=== PATIENT | female | born 1950 | race Caucasian/White ===

== ENCOUNTER → 2018-04-17 | Outpatient (CLI) | payer BC ==
[2018-04-17 08:17] VITALS: BP 113/61; PULSE 73; TEMP 98; BMI 28.0
--- NOTE | 2018-04-17 08:57 | P.HPOB ---
History of Present Illness H&P Date: 04/17/18 Chief Complaint: The patient is here for her routine gynecologic exam and mammogram. This is a 67-year-old with an LMP of 2000. The patient is without gynecologic complaints and denies any postmenopausal bleeding. I had previously recommended a yearly pelvic ultrasound because of her sister's history of ovarian cancer. She previously had declined the pelvic ultrasound. She now states she will consider this. Review of Systems Weight has been stable. She denies respiratory, cardiac and G.I. problems. She denies maltreatment or problems with falling. : she denies any significant problems with urinary leakage. Past Medical History Past Medical History: Hyperlipidemia Additional Past Medical History / Comment(s): macular degeneration, cataracts and seasonal allergies. 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 She had a conization of her cervix for an abnormal Pap smear many years ago. History of Any Multi-Drug Resistant Organisms: None Reported Past Surgical History: Appendectomy, Section (x2), Tonsillectomy Additional Past Surgical History / Comment(s): Cervical conization. Ovarian sick cystectomy for dermoid cyst in the 1970s. Colonoscopy 2011(2nd). Past Psychological History: No Psychological Hx Reported Smoking Status: Never smoker Past Alcohol Use History: Occasional (3 per week) Past Drug Use History: None Reported Additional History: She has been since 1981 and this is her 2nd marriage. 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 - Past Family History Sister(s) Family Medical History: Cancer (Ovarian cancer in her 20s. of gastric cancer.) Father Family Medical History: Cancer (Prostate cancer), Myocardial Infarction ([place]) Mother Family Medical History: No Reported History Additional Family Medical History / Comment(s): Maternal aunt had breast cancer. Medications and Allergies Home Medications Medication Instructions Recorded Confirmed Type Biotin 5,000 mcg PO 04/17/18 History Cholecalciferol (Vitamin D3) 5,000 unit PO 04/17/18 History [Vitamin D3] Loratadine [Claritin] 10 mg PO DAILY 04/17/18 04/17/18 History Rosuvastatin [Crestor] 20 mg PO DIRECTED 04/17/18 04/17/18 History Ubidecarenone [Co Q-10] 100 mg PO DAILY 04/17/18 04/17/18 History Allergies Allergy/AdvReac Type Severity Reaction Status Date / Time No Known Allergies Allergy Unverified 04/17/18 08:06 Exam Vital Signs Temp Pulse BP 04/17/18 08:10 98.0 F 73 113/61 Intake and Output 04/16/18 04/17/18 04/17/18 22:59 06:59 14:59 Other: Weight 69.4 kg Height 5'2", weight 153 pounds, BMI 28.0. This is a well-developed well-nourished white female who is alert and oriented times 3 in no acute distress. HEENT: Within normal limits. NECK: Supple without mass or thyromegaly. CHEST AND LUNGS: Clear to auscultation. HEART: Regular rate and rhythm. BREASTS: Are without mass or discharge. AXILLARY EXAM: Negative for adenopathy. BACK: Negative for CVA tenderness. ABDOMEN: Soft, nontender, without palpable masses. PELVIC EXAM: Normal external genitalia with mild atrophy. Cervix and vagina appear normal with mild atrophy. There is no unusual discharge. There is no evidence of prolapse. The uterus is midposition, nongravid size and nontender. There are no palpable adnexal masses or tenderness. RECTAL EXAM: rectovaginal exam is negative for mass or tenderness and is negative for occult blood. EXTREMITIES: Nontender. IMPRESSION: 1. 67-year-old menopausal female with normal gynecologic exam. 2. Family history of ovarian cancer in her sister. PLAN: 1. Pap smear was deferred since she had a normal one last year. 2. Self breast awareness was discussed with the patient. 3. Screening mammogram will be done today. 4. I have recommended yearly pelvic ultrasounds because of her sister's history of ovarian cancer. She previously declined this but states she will consider doing this. The order slip was given to the patient for this. 5. Osteoporosis prevention was discussed. I have stressed the importance of adequate calcium, vitamin D and regular exercise. Recommended amounts of calcium and vitamin D were also discussed. I have recommended bone density screening since her last one was approximately 2001. She states she will consider doing this next year. 6. She states she does not get flu shots and is declining getting a flu shot this year. 7. She states she recently had Cologuard done through Dr. Uribe and the results are pending. 8. She will return in one year.
--- NOTE | 2018-04-18 08:07 | MM ---
Reason for exam: screening (asymptomatic). Last mammogram was performed 1 year ago. History: Patient is postmenopausal and had first child at age 32. Family history of breast cancer in maternal aunt. Physical Findings: A clinical breast exam by your physician is recommended on an annual basis and results should be correlated with mammographic findings. MG 3D Screening Mammo W/Cad Bilateral CC and MLO view(s) were taken. Prior study comparison: April 12, 2017, bilateral MG screening mammo w CAD. February 16, 2016, bilateral MG screening mammo w CAD. The breast tissue is heterogeneously dense. This may lower the sensitivity of mammography. Stable benign calcifications. There is no discrete abnormality. No significant changes when compared with prior studies. ASSESSMENT: Benign, BI-RAD 2 RECOMMENDATION: Routine screening mammogram of both breasts in 1 year.
== END | disposition home or self-care (01) ==
LOC: WWCWWP 07:53
PROVIDERS: ATTEND Obstetrics & Gynecology
DX: Z12.31 Encounter for screening mammogram for malignant neoplasm of breast (principal)
CPT/HCPCS: 77063; 77067

== ENCOUNTER → 2018-04-17 | Outpatient (CLI) | payer BC ==
[2018-04-17 10:02] LABS: Basophils % (A) 1 %; Eosinophils # (A) 0.1 k/uL (0-0.7); Eosinophils % (A) 3 %; HCT 42.6 % (34.0-46.0); HGB 14.4 gm/dL (11.4-16.0); Lymphocytes # (A) 1.2 k/uL (1.0-4.8); Lymphocytes % (A) 23 %; MCH 31.1 pg (25.0-35.0); MCHC 33.9 g/dL (31.0-37.0); MCV 91.7 fL (80.0-100.0); Mean Platelet Volume 7.5; Monocytes # (A) 0.2 k/uL (0-1.0); Monocytes % (A) 5 %; Neutrophils # (A) 3.5 k/uL (1.3-7.7); Neutrophils % (A) 67 %; Platelet Count 228 k/uL (150-450); RBC 4.64 m/uL (3.80-5.40); RDW 12.6 % (11.5-15.5); WBC 5.2 k/uL (3.8-10.6)
[2018-04-17 17:00] LABS: Albumin 4.8 g/dL (3.80-4.90); Albumin/Globulin Ratio 2.67 (1.20-2.10); Anion Gap 8.5 mmol/L (4.00-12.00); Calcium 9.5 mg/dL (8.7-10.3); Carbon Dioxide 26.5 mmol/L (21.6-31.8); Globulin 1.8 g/dL (2.1-3.7); LDL Cholesterol,Calculated 88.2 mg/dL (0.0-131.0); Potassium 4.3 mmol/L (3.5-5.5); Total Bilirubin 0.4 mg/dL (0.2-1.2); Total Protein 6.6 g/dL (6.2-8.2); VLDL Calculation 22.8 mg/dL (5.00-40.00)
[2018-04-17 17:06] LABS: T4, Free (Free Thyroxine) 1.2 ng/dL (0.80-1.80)
[2018-04-17 23:34] LABS: Hemoglobin A1C 5.5 % (4.0-6.0)
== END ==
LOC: LABWHC1 09:03
PROVIDERS: ATTEND Internal Medicine Geriatric Medicine
DX: K21.9 Gastro-esophageal reflux disease without esophagitis (principal); E78.00 Pure hypercholesterolemia, unspecified; R03.0 Elevated blood-pressure reading, without diagnosis of hypertension; R79.9 Abnormal finding of blood chemistry, unspecified
CPT/HCPCS: 36415; 80053; 80061; 83036; 84439; 84443; 85025

== ENCOUNTER → 2020-08-18 | Outpatient (CLI) | payer MEDICARE ==
[2020-08-18 14:34] VITALS: BP 125/73; PULSE 86; RESP 16; TEMP 98
--- NOTE | 2020-08-18 18:07 | P.HPOB ---
History of Present Illness H&P Date: 08/18/20 Chief Complaint: The patient is here for her routine gynecologic exam and ma mmogram. This is a 69-year-old with an LMP of 2000. The patient is without gynecologic complaints and denies any postmenopausal bleeding. She had previously denied a yearly pelvic ultrasound which was recommended because of her sister's history of ovarian cancer. She states she will consider doing it this year. Review of Systems She has lost about 4 pounds over the past 2 years. She denies respiratory, cardiac and G.I. problems. She denies maltreatment. She fell on her bottom about a year ago and states she has had a sore left isheal tuberosity since then but it has been gradually improving. She has not seen anybody for this. : she denies any significant problems with urinary leakage. Past Medical History Past Medical History: Hyperlipidemia Additional Past Medical History / Comment(s): macular degeneration, cataracts and seasonal allergies. 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 She had a conization of her cervix for an abnormal Pap smear more than 30 years ago. History of Any Multi-Drug Resistant Organisms: None Reported Past Surgical History: Appendectomy, Section, Tonsillectomy Additional Past Surgical History / Comment(s): Cervical conization. Ovarian sick cystectomy for dermoid cyst in the 1970s. Colonoscopy 2011(2nd). Past Psychological History: No Psychological Hx Reported Smoking Status: Never smoker Past Alcohol Use History: Occasional (3 per week) Past Drug Use History: None Reported Additional History: She has been since 1981 and this is her second marriage. 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 - Past Family History Sister(s) Family Medical History: Cancer Additional Family Medical History / Comment(s): Ovarian cancer in her 20s. She of gastric cancer. Father Family Medical History: Cancer, Myocardial Infarction ([place]) Additional Family Medical History / Comment(s): Prostate cancer. Mother Family Medical History: No Reported History Additional Family Medical History / Comment(s): Maternal aunt had breast cancer. Medications and Allergies Home Medications Medication Instructions Recorded Confirmed Type Biotin 5,000 mcg PO DAILY 04/17/18 08/18/20 History Cholecalciferol (Vitamin D3) 5,000 unit PO DAILY 04/17/18 08/18/20 History [Vitamin D3] Loratadine [Claritin] 10 mg PO DAILY 04/17/18 08/18/20 History Rosuvastatin [Crestor] 20 mg PO DIRECTED 04/17/18 08/18/20 History Ubidecarenone [Co Q-10] 100 mg PO DAILY 04/17/18 08/18/20 History Ascorbic Acid/Multivit-Min 1,000 mg PO DAILY 08/18/20 08/18/20 History [Emergen-C 1,000 mg Packet] Vit C/E/Zn/Coppr/Lutein/Zeaxan 1 each PO DAILY 08/18/20 08/18/20 History [Preservision Areds 2 Softgel] Allergies Allergy/AdvReac Type Severity Reaction Status Date / Time cephalexin [From Keflex] AdvReac Rash/Hives Unverified 08/18/20 14:27 Exam Vital Signs Temp Pulse Resp BP Pulse Ox 08/18/20 14:27 98.0 F 86 16 125/73 95 Intake and Output 08/18/20 08/18/20 08/18/20 06:59 14:59 22:59 Other: Weight 67.585 kg Height 5 foot 1-1/2 inches, weight 149 pounds, BMI 27.7. This is a well-developed well-nourished white female who is alert and oriented times 3 in no acute distress. HEENT: Within normal limits. NECK: Supple without mass or thyromegaly. CHEST AND LUNGS: Clear to auscultation. HEART: Regular rate and rhythm. BREASTS: Are without mass or discharge. AXILLARY EXAM: Negative for adenopathy. BACK: Negative for CVA tenderness. ABDOMEN: Soft, nontender, without palpable masses. PELVIC EXAM: Normal external genitalia with mild atrophy. Cervix and vagina appear normal with mild atrophy. There is no unusual discharge. There is no evidence of prolapse. The uterus is midposition, nongravid size and nontender. There are no palpable adnexal masses or tenderness. RECTAL EXAM: Rectovaginal exam is negative for mass or tenderness and is negative for occult blood. EXTREMITIES: Nontender. IMPRESSION: 1. 69-year-old menopausal female with normal gynecologic exam. 2. Family history of ovarian cancer in her sister. PLAN: 1. Pap smear was performed. If this one is negative, we will consider discontinuing Pap smears. She has had 3 negative Pap smears since 2013, but the first one so we were only 1 year apart. 2. Self breast awareness was discussed with the patient. 3. Screening mammogram will be done today. 4. Osteoporosis prevention was discussed. I have stressed the importance of adequate calcium, vitamin D and regular exercise. Recommended amounts of calcium and vitamin D were also discussed. Bone density testing will be done today. 5. I again have recommended screening pelvic ultrasound yearly because of her family history of ovarian cancer in her sister. The order slip was given to the patient for this. 6. She has completed her Covid vaccination series. 7. She was advised to return in one year for her annual well woman exam.
--- NOTE | 2020-08-19 10:29 | BD ---
EXAMINATION TYPE: Axial Bone Density DATE OF EXAM: 08/18/2020 COMPARISON: NONE CLINICAL HISTORY: Height: 5 FT 1 1/5 IN Weight: 149 FRAX RISK QUESTIONS: Alcohol (3 or more units per day): NO Family History (Parent hip fracture): NO Glucocorticoids (More than 3mos): NO (Ex: prednisone, prednisolone, methylprednisolone, dexamethasone, and hydrocortisone). History of Fracture in Adulthood: NO Secondary Osteoporosis: 1. Type 1 Diabetes: NO 2. Hyperthyroidism: NO 3. Menopause before 45: YES 4. Malnutrition: NO 5. Chronic liver disease: NO Rheumatoid Arthritis: NO Current Tobacco Use: NO RISK FACTORS HISTORY OF: Surgery to Spine/Hip(right/left)/Wrist (right/left): NO Family History of Osteoporosis: NO Active: YES Diet low in dairy products/other sources of calcium: NO Postmenopausal woman: EARLY TO MID 40'S Take estrogen and/or progesterone medications: NONE Lost more than 2 inches in height since high school: NO MEDICATIONS: Additional Medications: CRESTOR, Additional History: EXAM MEASUREMENTS: Bone mineral densitometry was performed using the [employer] System. Bone mineral density as measured about the Lumbar spine is: ----- L1-L4(G/cm2): 0.891 T Score Values are as follows: ----- L2: -2.4 ----- L3: -2.3 ----- L4: -2.0 ----- L1-L4: -2.4 PREV DONE LONG AGO Bone mineral density about the R hip (g/cm2): 0.706 Bone mineral density about the L hip (g/cm2): 0.750 T Score values are as follows: -----R Neck: -2.4 -----L Neck: -2.1 -----R Total: -1.5 -----L Total: -1.2 PREV DONE LONG AGO IMPRESSION: osteopenia NOTE: T-SCORE=SD OF THE YOUNG ADULT MEAN.
--- NOTE | 2020-08-20 10:59 | MM ---
Reason for exam: screening (asymptomatic). Last mammogram was performed 2 years and 4 months ago. History: Patient is postmenopausal and had first child at age 32. Family history of breast cancer in maternal aunt. Physical Findings: A clinical breast exam by your physician is recommended on an annual basis and results should be correlated with mammographic findings. MG 3D Screening Mammo W/Cad Bilateral CC and MLO view(s) were taken. Prior study comparison: April 17, 2018, bilateral MG 3d screening mammo w/cad. April 12, 2017, bilateral MG screening mammo w CAD. The breast tissue is heterogeneously dense. This may lower the sensitivity of mammography. No significant changes when compared with prior studies. ASSESSMENT: Benign, BI-RAD 2 RECOMMENDATION: Routine screening mammogram of both breasts in 1 year.
== END | disposition home or self-care (01) ==
LOC: WWCWWP 14:01
PROVIDERS: ATTEND Obstetrics & Gynecology
DX: Z01.419 Encounter for gynecological examination (general) (routine) without abnormal findings (principal); Z12.31 Encounter for screening mammogram for malignant neoplasm of breast; E78.5 Hyperlipidemia, unspecified; Z80.41 Family history of malignant neoplasm of ovary; Z80.3 Family history of malignant neoplasm of breast
CPT/HCPCS: 77063; 77067; 77080

== ENCOUNTER 2021-04-15 14:58 | Emergency (ER) | payer MEDICARE ==
--- NOTE | 2021-04-15 15:52 | XR ---
EXAMINATION TYPE: XR hand complete LT DATE OF EXAM: 04/15/2021 CLINICAL HISTORY: pain TECHNIQUE: Frontal, lateral and oblique images of the left hand are obtained. COMPARISON: None. FINDINGS: There is no acute fracture/dislocation evident. The joint spaces appear within normal limi ts. The overlying soft tissue appears unremarkable. IMPRESSION: There is no acute fracture or dislocation. ICD 10 NO FRACTURE, INITIAL EVALUATION
[2021-04-15] MEDS ORDERED: DIPH,PERTUS(ACELL)TETVAC-LF 0.5 ML VIAL IM ONE (17:26)
[2021-04-15] MEDS ORDERED: LIDOCAINE 1% INJ 10MG/ML (20 ML MDV) SQ ONE (17:26)
--- NOTE | 2021-04-15 17:33 | ED ---
General Adult HPI - General Chief complaint: Animal Bite Stated complaint: Dog bite, hand injury Time Seen by Provider: 04/15/21 16:53 Source: patient, RN notes reviewed Mode of arrival: ambulatory Limitations: no limitations - History of Present Illness Initial comments: 70-year-old female presents to the emergency room for a chief complaint of dog bite. Patient was walking across the street and her neighbor was walking the other way with her dog. Patient states the neighbor's dog bit her on the index finger. Patient is not up-to-date on tetanus. Patient states the dog is vaccinated but she will be requesting proof tonight when she gets home. Patient will be filing a police report.Patient has no other complaints at this time including shortness of breath, chest pain, abdominal pain, nausea or vomiting, headache, or visual changes. - Related Data Home Medications Medication Instructions Recorded Confirmed Biotin [Biotin Disolve] 5,000 mcg PO DAILY 04/17/18 08/18/20 Cholecalciferol (Vitamin D3) 5,000 unit PO DAILY 04/17/18 08/18/20 [Vitamin D3] Loratadine [Claritin] 10 mg PO DAILY 04/17/18 08/18/20 Rosuvastatin [Crestor] 20 mg PO DIRECTED 04/17/18 08/18/20 Ubidecarenone [Co Q-10] 100 mg PO DAILY 04/17/18 08/18/20 Ascorbic Acid/Multivit-Min 1,000 mg PO DAILY 08/18/20 08/18/20 [Emergen-C 1,000 mg Packet] Vit C/E/Zn/Coppr/Lutein/Zeaxan 1 each PO DAILY 08/18/20 08/18/20 [Preservision Areds 2 Softgel] Previous Rx's Medication Instructions Recorded Amoxicillin/Potassium Clav 1 tab PO Q12HR #20 tab 04/15/21 [Augmentin 875-125 Tablet] Allergies Allergy/AdvReac Type Severity Reaction Status Date / Time cephalexin [From Keflex] AdvReac Rash/Hives Unverified 04/15/21 15:15 Review of Systems ROS Statement: Those systems with pertinent positive or pertinent negative responses have been documented in the HPI. ROS Other: All systems not noted in ROS Statement are negative. Past Medical History Past Medical History: Hyperlipidemia Additional Past Medical History / Comment(s): macular degeneration, cataracts and seasonal allergies. 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 She had a conization of her cervix for an abnormal Pap smear more than 30 years ago. History of Any Multi-Drug Resistant Organisms: None Reported Past Surgical History: Appendectomy, Section, Tonsillectomy Additional Past Surgical History / Comment(s): Cervical conization. Ovarian sick cystectomy for dermoid cyst in the 1970s. Colonoscopy 2011(2nd). Past Psychological History: No Psychological Hx Reported Smoking Status: Never smoker Past Alcohol Use History: Occasional Past Drug Use History: None Reported - Past Family History Sister(s) Family Medical History: Cancer Additional Family Medical History / Comment(s): Ovarian cancer in her 20s. She of gastric cancer. Father Family Medical History: Cancer, Myocardial Infarction ([place]) Additional Family Medical History / Comment(s): Prostate cancer. Mother Family Medical History: No Reported History Additional Family Medical History / Comment(s): Maternal aunt had breast cancer. General Exam Limitations: no limitations General appearance: alert, in no apparent distress Head exam: Present: atraumatic Eye exam: Present: normal appearance, PERRL, EOMI. Absent: scleral icterus, conjunctival injection ENT exam: Present: normal exam, mucous membranes moist Neck exam: Present: normal inspection, full ROM. Absent: tenderness Respiratory exam: Present: normal lung sounds bilaterally. Absent: respiratory distress, wheezes Cardiovascular Exam: Present: regular rate, normal rhythm, normal heart sounds Extremities exam: Present: full ROM (full Range of motion of the right), normal capillary refill (Refill is < 2 seconds right second digit), other (2 cm laceration noted over the dorsal aspect of the proximal phalanx of the right second digit. abrasions noted over dorsal aspect R hand) Neurological exam: Present: alert Course Vital Signs 04/15/21 15:12 Temperature 98.6 F Pulse Rate 111 H Respiratory 20 Rate Blood Pressure 143/79 O2 Sat by Pulse 97 Oximetry Procedures - Laceration Laceration #1 Consent Obtained: verbal consent Indication: laceration Site: hand Size (cm): 2 Description: stellate Depth: simple, single layer Anesthetic Used: lidocaine 1% Anesthesia Technique: local infiltration Amount (mls): 2 Pre-repair: wound explored, irrigated extensively (Saline pressure irrigation) Type of Sutures: nylon Size of Sutures: 5-0 Number of Sutures: 5 Technique: simple, interrupted Patient Tolerated Procedure: well, no complications Medical Decision Making - Medical Decision Making Vitals are stable. Patient slightly tachycardic upon arrival likely related to anxiety. X-ray shows no acute fracture or dislocation. Wound was irrigated thoroughly. I am able to visualize the tendon. I do not see any lacerations of the tendon. Wound was repaired loosely to allow for drainage. Started on Augmentin. Given I'm able to visualize the tendon I will splint patient have her follow-up with orthopedics. She will return here for any worsening symptoms. Disposition Clinical Impression: Dog bite Disposition: HOME SELF-CARE Instructions (If sedation given, give patient instructions): Animal Bite (ED) Additional Instructions: Please take antibiotics as directed. Keep wound irrigated with gentle soap and water. Follow up with orthopedics. Return for any worsening symptoms. Prescriptions: Amoxicillin/Potassium Clav [Augmentin 875-125 Tablet] 1 tab PO Q12HR #20 tab Is patient prescribed a controlled substance at d/c from ED?: No Referrals: Chiki Uribe MD [Primary Care Provider] - 1-2 days Amara Fuchs DO [Doctor of Osteopathic Medicine] - 1-2 days Time of Disposition: 18:29
[2021-04-15] MEDS ORDERED: BACITRACIN OINT 1 EACH PACKET TOPICAL STA (18:20)
[2021-04-15] MEDS ORDERED: AMOXIC-POT CLAV 875MG STARTER PACK 2 TAB BTL PO STA (18:27)
[2021-04-15 18:52] VITALS: BP 155/78; PULSE 79; RESP 18; TEMP 98
== END 2021-04-15 18:51 | disposition home or self-care (01) ==
LOC: EC 14:58
DX: S61.250A Open bite of right index finger without damage to nail, initial encounter (principal); E78.5 Hyperlipidemia, unspecified; Z88.1 Allergy status to other antibiotic agents; Z90.49 Acquired absence of other specified parts of digestive tract; W54.0XXA Bitten by dog, initial encounter
CPT/HCPCS: 99283; 90471; 12001; 73130; 90715; J2001

== ENCOUNTER → 2021-10-12 | Outpatient (CLI) | payer MEDICARE ==
[2021-10-12 08:10] VITALS: BP 130/60; PULSE 79; RESP 17; TEMP 98.2
--- NOTE | 2021-10-12 08:46 | P.HPOB ---
History of Present Illness H&P Date: 10/12/21 Chief Complaint: The patient is here for her routine gynecologic exam and ma mmogram. This is a 70-year-old with an LMP of 2000. The patient is without gynecologic complaints. She has not done the yearly pelvic ultrasounds as I had recommended because of her sister's history of ovarian cancer. She states she will consider doing it this year. Review of Systems The patient has gained 3 pounds over the last year. She denies respiratory, cardiac, or G.I. problems. Past Medical History Past Medical History: Hyperlipidemia Additional Past Medical History / Comment(s): macular degeneration, cataracts and seasonal allergies. 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 She had a conization of her cervix for an abnormal Pap smear more than 30 years ago. History of Any Multi-Drug Resistant Organisms: None Reported Past Surgical History: Appendectomy, Section, Tonsillectomy Additional Past Surgical History / Comment(s): Cervical conization. Ovarian cystectomy for dermoid cyst in the . Colonoscopy 2011(2nd). Past Psychological History: No Psychological Hx Reported Smoking Status: Never smoker Past Alcohol Use History: Occasional (3 per week) Past Drug Use History: None Reported Additional History: She has been since 1981 and this is her second marriage. 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 - Past Family History Sister(s) Family Medical History: Cancer Additional Family Medical History / Comment(s): Ovarian cancer in her 20s. She of gastric cancer. Father Family Medical History: Cancer, Myocardial Infarction ([place]) Additional Family Medical History / Comment(s): Prostate cancer. Mother Family Medical History: No Reported History Additional Family Medical History / Comment(s): Maternal aunt had breast cancer. Medications and Allergies Home Medications Medication Instructions Recorded Confirmed Type Biotin [Biotin Disolve] 5,000 mcg PO DAILY 04/17/18 10/12/21 History Ubidecarenone [Co Q-10] 100 mg PO DAILY 04/17/18 10/12/21 History Ascorbic Acid/Multivit-Min 1,000 mg PO DAILY 08/18/20 10/12/21 History [Emergen-C 1,000 mg Packet] Vit C/E/Zn/Coppr/Lutein/Zeaxan 1 cap PO DAILY 08/18/20 10/12/21 History [Preservision Areds 2 Softgel] Cholecalciferol [Vitamin D3 (125 125 mcg PO DAILY 04/15/21 10/12/21 History Mcg = 5000 Iu)] Rosuvastatin [Crestor] 10 mg PO DAILY 04/15/21 10/12/21 History Allergies Allergy/AdvReac Type Severity Reaction Status Date / Time cephalexin [From Keflex] AdvReac Rash/Hives Verified 10/12/21 08:01 Exam Vital Signs Temp Pulse Resp BP Pulse Ox 10/12/21 08:07 98.2 F 79 17 130/60 95 Intake and Output 10/11/21 10/12/21 10/12/21 22:59 06:59 14:59 Other: Weight 68.946 kg Height 5 feet 2 inches, weight 152 pounds, BMI 27.8. This is a well-developed well-nourished white female who is alert and oriented times 3 in no acute distress. HEENT: Within normal limits. NECK: Supple without mass or thyromegaly. CHEST AND LUNGS: Clear to auscultation. HEART: Regular rate and rhythm. BREASTS: Are without mass or discharge. AXILLARY EXAM: Negative for adenopathy. BACK: Negative for CVA tenderness. ABDOMEN: Soft, nontender, without palpable masses. PELVIC EXAM: Normal external genitalia with mild to moderate atrophy. Cervix and vagina appear normal with mild to moderate atrophy. There is no unusual discharge. There is no evidence of prolapse. The uterus is midposition, nongravid size and nontender. There are no palpable adnexal masses or tenderness. RECTAL EXAM: Rectovaginal exam is negative for mass or tenderness and is negative for occult blood. EXTREMITIES: Nontender. IMPRESSION: 1. 70-year-old menopausal female with normal gynecologic exam. 2. Family history of ovarian cancer at a young age in her sister. 3. History of osteopenia PLAN: 1. Pap smears have been discontinued. 2. Self breast awareness was discussed with the patient. We have also discussed symptoms associated with inflammatory breast cancer. 3. Screening mammogram will be done today. 4. I have again recommended a screening pelvic ultrasound yearly because of her family history of ovarian cancer in her sister. She states she will consider do ing this this year. The order slip was given to the patient. 5. Colorectal cancer screening was discussed. She recently completed a Cologuard test through her PCP. 6.Osteoporosis prevention was discussed. I have stressed the importance of adequate calcium, vitamin D and regular exercise. Recommended amounts of calcium and vitamin D were also discussed. Her last bone density test was done in August 2020. We will plan on repeating bone density testing next year at her annual well woman examination. 7. She was advised to return in one year for her annual well woman exam.
== END ==
LOC: WWCWWP 07:54
PROVIDERS: ATTEND Obstetrics & Gynecology
DX: Z12.31 Encounter for screening mammogram for malignant neoplasm of breast (principal); E78.5 Hyperlipidemia, unspecified; Z87.39 Personal history of other diseases of the musculoskeletal system and connective tissue; Z80.41 Family history of malignant neoplasm of ovary; Z88.1 Allergy status to other antibiotic agents
CPT/HCPCS: 77063; 77067

== ENCOUNTER → 2022-10-25 | Outpatient (CLI) | payer MEDICARE ==
[2022-10-25 12:35] VITALS: BP 117/77; PULSE 70; RESP 16; TEMP 98.2
--- NOTE | 2022-10-25 13:21 | P.HPOB ---
History of Present Illness H&P Date: 10/25/22 Chief Complaint: The patient is here for her routine gynecologic exam and ma mmogram. This is a 71-year-old with an LMP of 2000. The patient states she fell down some stairs about 2 years ago and was having some pelvic discomfort with intercourse for a while, but this has resolved. She is currently without gynecologic complaints and denies any postmenopausal bleeding. She did not do the pelvic ultrasound as recommended and still has the order slip. This was recommended because of her sister's history of ovarian cancer at a young age. She states she will consider doing this year. Review of Systems The patient's weight has been stable over the last year. She denies respiratory, cardiac, or G.I. problems. Past Medical History Past Medical History: Hyperlipidemia Additional Past Medical History / Comment(s): macular degeneration, cataracts and seasonal allergies. 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 She had a conization of her cervix for an abnormal Pap smear more than 30 years ago. History of Any Multi-Drug Resistant Organisms: None Reported Past Surgical History: Appendectomy, Section, Tonsillectomy Additional Past Surgical History / Comment(s): Cervical conization. Ovarian cystectomy for dermoid cyst in the 1970s. Colonoscopy 2011(2nd). Past Psychological History: No Psychological Hx Reported Smoking Status: Never smoker Past Alcohol Use History: Occasional (6 per week.) Past Drug Use History: None Reported Additional History: She has been since 1981 and this is her second marriage. She is sexually active. 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 - Past Family History Sister(s) Family Medical History: Cancer Additional Family Medical History / Comment(s): Ovarian cancer in her 20s. She of gastric cancer. Father Family Medical History: Cancer, Myocardial Infarction ([place]) Additional Family Medical History / Comment(s): Prostate cancer. Mother Family Medical History: No Reported History Additional Family Medical History / Comment(s): Maternal aunt had breast cancer. Brother(s) Family Medical History: Cancer Additional Family Medical History / Comment(s): Bladder cancer. Medications and Allergies Home Medications Medication Instructions Recorded Confirmed Type Biotin [Biotin Disolve] 5,000 mcg PO DAILY 04/17/18 10/25/22 History Ubidecarenone [Co Q-10] 100 mg PO DAILY 04/17/18 10/25/22 History Ascorbic Acid/Multivit-Min 1,000 mg PO DAILY 08/18/20 10/25/22 History [Emergen-C 1,000 mg Packet] Vit C/E/Zn/Coppr/Lutein/Zeaxan 1 cap PO DAILY 08/18/20 10/25/22 History [Preservision Areds 2 Softgel] Cholecalciferol [Vitamin D3 (125 125 mcg PO DAILY 04/15/21 10/25/22 History Mcg = 5000 Iu)] Rosuvastatin [Crestor] 10 mg PO DAILY 04/15/21 10/25/22 History Loratadine [Claritin] 10 mg PO DAILY 10/25/22 10/25/22 History Allergies Allergy/AdvReac Type Severity Reaction Status Date / Time cephalexin [From Keflex] AdvReac Rash/Hives Verified 10/25/22 12:30 Exam Vital Signs Temp Pulse Resp BP Pulse Ox 10/25/22 12:32 98.2 F 70 16 117/77 97 Intake and Output 10/24/22 10/25/22 10/25/22 22:59 06:59 14:59 Other: Weight 69.853 kg Height 5 foot 1 inch, weight 154 pounds, BMI 29.1. This is a well-developed well-nourished white female who is alert and oriented times 3 in no acute distress. HEENT: Within normal limits. NECK: Supple without mass or thyromegaly. CHEST AND LUNGS: Clear to auscultation. HEART: Regular rate and rhythm. BREASTS: Are without mass or discharge. AXILLARY EXAM: Negative for adenopathy. BACK: Negative for CVA tenderness. ABDOMEN: Soft, nontender, without palpable masses. PELVIC EXAM: Normal external genitalia with mild to moderate atrophy. Cervix and vagina appear normal mild atrophy. There is no unusual discharge. There is no evidence of prolapse. The uterus is midposition, nongravid size and nontender. There are no palpable adnexal masses or tenderness. RECTAL EXAM: Rectovaginal exam is negative for mass or tenderness and is negative for occult blood. EXTREMITIES: Nontender. IMPRESSION: 1. 71-year-old menopausal female with normal gynecologic exam. 2. Family history of a sister who did felt ovarian cancer at a young age. 3. History of osteopenia. PLAN: 1. Pap smears have been discontinued. 2. Self breast awareness was discussed with the patient. We have also discussed symptoms associated with inflammatory breast cancer. 3. Screening mammogram will be done today. 4. I have recommended yearly pelvic ultrasounds because of her sister's history of ovarian cancer at a young age. The order slip was given to the patient for this. 5. Osteoporosis prevention was discussed. I have stressed the importance of adequate calcium, vitamin D and regular exercise. Recommended amounts of calcium and vitamin D were also discussed. I have also recommended repeating the bone density test since it has been about 2 years since her last one. The order slip was given to the patient for this. 6. She was advised to return in one year for her annual well woman exam.
--- NOTE | 2022-10-26 18:40 | MM ---
Reason for Exam: Screening (asymptomatic). Last mammogram was performed 1 year(s) and 1 month(s) ago. Patient History: Menarche at age 11. First Full-Term at age 32. Late child-bearing (after 30). Postmenopausal. Patient has history of breast feeding. Maternal aunt had breast cancer. Sister had ovarian cancer, age 25. Risk Values: Bailey 5 year model risk: 2.6%. NCI Lifetime model risk: 7.6%. Prior Study Comparison: 04/17/2018 Bilateral Screening Mammogram, [facility]. 08/18/2020 Bilateral Screening Mammogram, [facility]. 10/12/2021 Bilateral MG 3D screening mammo w/cad, [facility]. Tissue Density: The breast tissue is heterogeneously dense. This may lower the sensitivity of mammography. Findings: Analyzed By CAD. Pattern appears symmetrical and stable. No suspicious groups of microcalcifications, spiculated or lobular masses, architectural distortion or other secondary signs of malignancy are mammographically apparent. Overall Assessment: Benign, BI-RAD 2 Management: Screening Mammogram of both breasts in 1 year. A negative mammogram report should not preclude additional follow up of suspicious palpable abnormalities. Patient should continue monthly self breast exam. A clinical breast exam by your physician is recommended on an annual basis and results should be correlated with mammographic findings. Electronically signed and approved by: Nilo Daniels D.O. Radiologis
== END ==
LOC: WWCWWP 12:16
PROVIDERS: ATTEND Obstetrics & Gynecology
DX: Z12.31 Encounter for screening mammogram for malignant neoplasm of breast (principal); Z01.411 Encounter for gynecological examination (general) (routine) with abnormal findings; E78.5 Hyperlipidemia, unspecified; Z85.3 Personal history of malignant neoplasm of breast; M85.80 Other specified disorders of bone density and structure, unspecified site; Z88.1 Allergy status to other antibiotic agents
CPT/HCPCS: 77063; 77067

== ENCOUNTER → 2024-02-20 | Outpatient (CLI) | payer MEDICARE ==
[2024-02-20 15:34] VITALS: BP 126/79; PULSE 81; RESP 16; TEMP 98.2
--- NOTE | 2024-02-20 16:06 | P.HPOB ---
History of Present Illness H&P Date: 02/20/24 Chief Complaint: The patient is here for her routine gynecologic exam and ma mmogram. This is a 73-year-old G2, P2 with an LMP of 2000. The patient is without gynecologic complaints and denies any postmenopausal bleeding. Review of Systems The patient has lost 3 pounds over the last year. She denies respiratory, cardiac, or G.I. problems. Past Medical History Past Medical History: Hyperlipidemia Additional Past Medical History / Comment(s): macular degeneration, cataracts and seasonal allergies. 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 She had a conization of her cervix for an abnormal Pap smear more than 30 years ago. History of Any Multi-Drug Resistant Organisms: None Reported Past Surgical History: Appendectomy, Section, Tonsillectomy Additional Past Surgical History / Comment(s): Cervical conization. Ovarian cystectomy for dermoid cyst in the 1970s. Colonoscopy 2012(2nd). Past Psychological History: No Psychological Hx Reported Smoking Status: Never smoker Past Alcohol Use History: Occasional (2-3 drinks per week.) Past Drug Use History: None Reported Additional History: She has been since 1981 and this is her second marriage. She is sexually active. She is retired. - Past Family History Sister(s) Family Medical History: Cancer Additional Family Medical History / Comment(s): Ovarian cancer in her 20s. She of gastric cancer. Father Family Medical History: Cancer, Myocardial Infarction ([place]) Additional Family Medical History / Comment(s): Prostate cancer. Mother Family Medical History: No Reported History Additional Family Medical History / Comment(s): Maternal aunt had breast cancer. Brother(s) Family Medical History: Cancer Additional Family Medical History / Comment(s): Bladder cancer. Medications and Allergies Home Medications Medication Instructions Recorded Confirmed Type Biotin [Biotin Disolve] 10,000 mcg PO DAILY 04/17/18 02/20/24 History Ubidecarenone [Co Q-10] 100 mg PO DAILY 04/17/18 02/20/24 History Ascorbic Acid/Multivit-Min 1,000 mg PO DAILY 08/18/20 02/20/24 History [Emergen-C 1,000 mg Packet] Vit C/E/Zn/Coppr/Lutein/Zeaxan 1 cap PO DAILY 08/18/20 02/20/24 History [Preservision Areds 2 Softgel] Cholecalciferol [Vitamin D3 (125 125 mcg PO DAILY 04/15/21 02/20/24 History Mcg = 5000 Iu)] Rosuvastatin [Crestor] 20 mg PO DAILY 04/15/21 02/20/24 History Loratadine [Claritin] 10 mg PO DAILY 10/25/22 02/20/24 History Allergies Allergy/AdvReac Type Severity Reaction Status Date / Time cephalexin [From Keflex] AdvReac Rash/Hives Verified 02/20/24 15:29 Exam Vital Signs Temp Pulse Resp BP Pulse Ox 02/20/24 15:30 98.2 F 81 16 126/79 97 Intake and Output 02/20/24 02/20/24 02/20/24 06:59 14:59 22:59 Other: Weight 68.492 kg Height 5 feet 1 inch, weight 151 pounds, BMI 28.5. This is a well-developed well-nourished white female who is alert and oriented times 3 in no acute distress. HEENT: Within normal limits. NECK: Supple without mass or thyromegaly. CHEST AND LUNGS: Clear to auscultation. HEART: Regular rate and rhythm. BREASTS: Are without mass or discharge. AXILLARY EXAM: Negative for adenopathy. BACK: Negative for CVA tenderness. ABDOMEN: Soft, nontender, without palpable masses. PELVIC EXAM: Normal external genitalia with mild atrophy. Cervix and vagina appear normal with mild atrophy. There is no unusual discharge. There is no evidence of prolapse. The uterus is midposition, nongravid size and nontender. There are no palpable adnexal masses or tenderness. RECTAL EXAM: Rectovaginal exam is negative for mass or tenderness and is negative for occult blood. EXTREMITIES: Nontender. IMPRESSION: 1. 73-year-old menopausal female with normal gynecologic exam. 2. Family history of a sister who had ovarian cancer at a young age. 3. History of osteopenia. PLAN: 1. Pap smears have been discontinued. 2. Self breast awareness was discussed with the patient. We have also discussed symptoms associated with inflammatory breast cancer. 3. Screening mammogram will be done today. 4. I have recommended yearly pelvic ultrasound. The order slip was given to the patient for this. She has not done them as recommended in the past. We spent a long time discussing why I am suggesting this for her. She states she will have it done. 5. Osteoporosis prevention was discussed. I have stressed the importance of adequate calcium, vitamin D and regular exercise. Recommended amounts of calcium and vitamin D were also discussed. Her last bone density test was about 3 years ago. The order slip was given to the patient for another bone density test. 6. She was advised to return in one year for her annual well woman exam.
--- NOTE | 2024-02-21 12:38 | MM ---
Reason for Exam: Screening (asymptomatic). Last mammogram was performed 1 year(s) and 4 month(s) ago. Patient History: Menarche at age 11. First Full-Term at age 32. Late child-bearing (after 30). Postmenopausal. Patient has history of breast feeding. Maternal aunt had breast cancer. Sister had ovarian cancer, age 25. Risk Values: Bailey 5 year model risk: 2.7%. NCI Lifetime model risk: 6.9%. Prior Study Comparison: 08/18/2020 Bilateral Screening Mammogram, [facility]. 10/12/2021 Bilateral MG 3D screening mammo w/cad, [facility]. 10/25/2022 Bilateral MG 3D screening mammo w/cad, [facility]. Tissue Density: The breasts are heterogeneously dense, which may obscure small masses. Findings: Analyzed By CAD. There is no suspicious group of microcalcifications or new suspicious mass in either breast. Overall Assessment: Negative, BI-RAD 1 Management: Screening Mammogram of both breasts in 1 year. . Patient should continue monthly self-breast exams. A clinical breast exam by your physician is recommended on an annual basis. This exam should not preclude additional follow-up of suspicious palpable abnormalities. Note on Bailey scores and lifetime risk: 1. A Bailey score greater than 3% is considered moderate risk. If this is the case, consider specialist referral to assess eligibility for a risk reducing agent. 2. If overall lifetime risk for the development of breast cancer is 20% or higher, the patient may qualify for future screening with alternating mammogram and breast MRI. [facility], , 02/21/2024 12:35 PM. Electronically signed and approved by: Keaton Carlos M.D. Radiologis
== END ==
LOC: WWCWWP 15:18
PROVIDERS: ATTEND Obstetrics & Gynecology
CPT/HCPCS: 77063; 77067

== ENCOUNTER → 2024-03-01 | Outpatient (CLI) | payer MEDICARE ==
--- NOTE | 2024-03-01 13:23 | US ---
EXAMINATION TYPE: US pelvis complete transvag DATE OF EXAM: 03/01/2024 COMPARISON: NONE CLINICAL INDICATION: Female, 73 years old with history of Z80.41 FAMILY HX OVARIAN CX; Family history of ovarian CA (Sister) TECHNIQUE: Transvaginal (TV) and Transabdominal (TA) . Transabdominal grayscale, color Doppler and spectral Doppler sonographic images of the pelvis were acquired. Transvaginal sonographic images wer e medically necessary to better assess the following anatomy: TV ordered per physician FINDINGS: Date of LMP: Pt is postmenopausal x many years EXAM MEASUREMENTS: Uterus: 5.2 x 2.3 x 3.8 cm Endometrial Stripe: 0.2 cm Right Ovary: 1.3 x 1.2 x 1.3 cm Left Ovary: 1.4 x 0.8 x 0.9 cm 1. Uterus: Anteverted wnl 2. Endometrium: wnl 3. Right Ovary: wnl 4. Left Ovary: wnl 5. Bilateral Adnexa: wnl 6. Posterior cul-de-sac: wnl Anteverted heterogenous uterus without focal lesion identified. Endometrium is within normal limits. Both ovaries appear unremarkable. No free fluid. IMPRESSION: Unremarkable pelvic ultrasound. No ultrasound evidence for suspicious ovarian lesion. [facility], , 03/01/2024 1:21 PM
== END | disposition home or self-care (01) ==
LOC: RADUSWWP 12:43
PROVIDERS: ATTEND Obstetrics & Gynecology
DX: Z80.41 Family history of malignant neoplasm of ovary (principal)
CPT/HCPCS: 76830; 76856